=== PATIENT | female | born 1935 | race African-American/Black ===

== ENCOUNTER 2016-10-25 07:52 | Emergency (ER) | payer MEDICARE, MEDICAID ==
[~2016-10-25] VITALS: Ht 170.2 cm; Wt 58.0 kg
[~2016-10-25 07:52] MED LIST: CLOP75TA33 PO; KEPP500 PO; METO25TA6 PO
[2016-10-25] MEDS ORDERED: KETOROLAC 30MG/ML VIAL IV STA (08:25)
[2016-10-25] MEDS ORDERED: MORPHINE SULFATE 4 MG/ML CPJ (NOT FOR IM USE) IV STA (08:25)
[2016-10-25 08:51] LABS: BASOPHILS % 0.3 % (0.0-2.0); EOSINOPHILS % 0.9 % (0.0-5.0); HEMATOCRIT. 33.4 % (36.0-48.0); HEMOGLOBIN. 11.4 g/dL (12.0-16.0); LYMPHOCYTES % 23.2 % (20.0-50.0); MEAN CORPUSCULAR HEMOGLOBIN 28.4 pg (28.0-32.0); MEAN CORPUSCULAR VOLUME 83.4 fL (81.0-99.0); MEAN PLATELET VOLUME 7.7 fl (7.4-10.4); MONOCYTES % 10.6 % (2.0-8.0); PLATELET 170 x1000/uL (130-400); RED BLOOD CELL COUNT 4.01 mill/uL (4.2-5.4); RED CELL DISTRIBUTION WIDTH 14.1 % (11.6-14.6)
[2016-10-25 08:56] LABS: CHLORIDE 98 mEq/L (98-107)
[2016-10-25 08:59] LABS: PROTHROMBIN TIME 10.7 sec
[2016-10-25 09:04] LABS: CARBON DIOXIDE 23 mEq/L (21-32)
[2016-10-25 11:15] LABS: CLARITY URINE CLEAR (CLEAR); COLOR URINE YELLOW (YELLOW); GLUCOSE URINE NEGATIVE (NEGATIVE); KETONES URINE NEGATIVE (NEGATIVE); LEUKOCYTE ESTERASE URINE NEGATIVE (NEGATIVE); NITRITE URINE NEGATIVE (NEGATIVE); OCCULT BLOOD URINE TRACE (NEGATIVE); PH URINE 7.5 (4.5-8.0); PROTEIN URINE NEGATIVE (NEGATIVE); UROBILINOGEN URINE 0.2 E.U./dL (0.2-1.0)
[2016-10-25 11:26] VITALS: BP 183/87
== END 2016-10-25 12:14 | disposition home or self-care (01) ==
LOC: ER 07:58
DX: R10.32 Left lower quadrant pain (principal); I51.9 Heart disease, unspecified; Z79.01 Long term (current) use of anticoagulants
CPT/HCPCS: 36415; 74176; 80053; 81001; 83690; 85025; 85610; 96374; 96375; 99285; J1885; J2270

== ENCOUNTER 2016-12-06 11:36 | Emergency (ER) | payer MEDICARE, MEDICAID ==
[~2016-12-06] VITALS: Ht 170.2 cm; Wt 54.0 kg
[2016-12-06] MEDS ORDERED: TEMA15CA PO (12:01)
[2016-12-06] MEDS ORDERED: METHOCARBAMOL 500MG TABLET PO ONE (13:00)
[2016-12-06] MEDS ORDERED: KETOROLAC 60MG/2ML VIAL IM ONE (13:00)
[2016-12-06] MEDS ORDERED: ACETAMINOPHEN WITH CODEINE 300/30MG TABLET PO ONE (13:00)
[2016-12-06 18:07] VITALS: BP 154/89
== END 2016-12-06 18:11 | disposition home or self-care (01) ==
LOC: ER 11:36
DX: M54.16 Radiculopathy, lumbar region (principal); I25.10 Atherosclerotic heart disease of native coronary artery without angina pectoris; I10 Essential (primary) hypertension; R56.9 Unspecified convulsions; M25.551 Pain in right hip; M25.552 Pain in left hip; Z88.8 Allergy status to other drugs, medicaments and biological substances; Z90.710 Acquired absence of both cervix and uterus
CPT/HCPCS: 72100; 96372; 99284; J1885

== ENCOUNTER 2017-01-11 13:12 | Inpatient (IN) | payer MEDICARE, MEDICAID ==
[~2017-01-11] VITALS: Ht 157.5 cm; Wt 52.2 kg
[~2017-01-11 13:12] MED LIST changes: +TEMA15CA PO
[2017-01-11] MEDS ORDERED: MORPHINE SULFATE 4 MG/ML CPJ (NOT FOR IM USE) IV ONE (15:15)
[2017-01-11 15:43] LABS: BASOPHILS % 0.5 % (0.0-2.0); HEMATOCRIT. 30.9 % (36.0-48.0); HEMOGLOBIN. 10.5 g/dL (12.0-16.0); LYMPHOCYTES % 28.2 % (20.0-50.0); MEAN CORPUSCULAR HEMOGLOBIN 28.9 pg (28.0-32.0); MEAN CORPUSCULAR VOLUME 84.9 fL (81.0-99.0); MEAN PLATELET VOLUME 8.4 fl (7.4-10.4); MONOCYTES % 11.7 % (2.0-8.0); NEUTROPHILS % 59.6 % (40.0-76.0); PLATELET 151 x1000/uL (130-400); RED BLOOD CELL COUNT 3.65 mill/uL (4.2-5.4); RED CELL DISTRIBUTION WIDTH 15.2 % (11.6-14.6)
[2017-01-11 15:45] LABS: CHLORIDE 99 mEq/L (98-107)
[2017-01-11 15:48] LABS: INR 1.1
[2017-01-11 15:51] LABS: CARBON DIOXIDE 26 mEq/L (21-32)
[2017-01-11 15:55] LABS: TROPONIN I < 0.02 ng/mL (0.00-0.04)
[2017-01-11] MEDS ORDERED: ASPIRIN 325MG EC TABLET PO ONE (16:45)
[2017-01-11 17:42] LABS: CLARITY URINE CLEAR (CLEAR); COLOR URINE YELLOW (YELLOW); GLUCOSE URINE NEGATIVE (NEGATIVE); KETONES URINE TRACE (NEGATIVE); LEUKOCYTE ESTERASE URINE NEGATIVE (NEGATIVE); NITRITE URINE NEGATIVE (NEGATIVE); OCCULT BLOOD URINE NEGATIVE (NEGATIVE); PH URINE 8.5 (4.5-8.0); PROTEIN URINE NEGATIVE (NEGATIVE); SPECIFIC GRAVITY URINE 1.012 (1.005-1.030); UROBILINOGEN URINE 0.2 E.U./dL (0.2-1.0)
[2017-01-11] MEDS ORDERED: MORPHINE SULFATE 2 MG/ML CPJ (NOT FOR IM USE) IV NR (21:15)
[2017-01-11] MEDS ORDERED: ASPIRIN 325MG EC TABLET PO NR (21:15)
[2017-01-11 22:40] VITALS: BP 157/89
[2017-01-11] MEDS ORDERED: CLONIDINE 0.1MG TABLET PO PRN (23:15)
[2017-01-12 00:18] LABS: CREATINE KINASE 145 IU/L (26-192); CREATINE KINASE MB FRACTION 0.9 ng/mL (0.5-3.6); TROPONIN I < 0.02 ng/mL (0.00-0.04)
[2017-01-12 04:00] VITALS: BP 103/58
[2017-01-12] MEDS ORDERED: REGADENOSON 0.4 MG/5 ML IV ONE (06:30)
[2017-01-12] MEDS: HYDROCODONE/ACETAMINOPHEN 5/325MG TABLET PO PRN ×2 (07:05→17:46)
[2017-01-12 08:00] VITALS: BP 146/69
[2017-01-12] MEDS: NITROGLYCERIN OINT 1GM/INCH UDPKT TD SCH ×2 (08:30→21:52)
[2017-01-12] MEDS: CLOPIDOGREL 75MG TABLET PO SCH (08:30)
[2017-01-12] MEDS: LEVETIRACETAM 500MG TABLET PO SCH ×2 (08:31→17:48)
[2017-01-12] MEDS: ENOXAPARIN 30MG/0.3ML SYR SUBCUT SCH (08:31)
[2017-01-12] MEDS: METOPROLOL TARTRATE 25MG TABLET PO SCH (08:31)
[2017-01-12] MEDS ORDERED: METOPROLOL TARTRATE 25MG TABLET PO SCH (09:00)
[2017-01-12 10:34] LABS: BASOPHILS % 0.2 % (0.0-2.0); HEMATOCRIT. 31.3 % (36.0-48.0); HEMOGLOBIN. 10.6 g/dL (12.0-16.0); LYMPHOCYTES % 30.4 % (20.0-50.0); MEAN CORPUSCULAR HEMOGLOBIN 28.9 pg (28.0-32.0); MEAN CORPUSCULAR VOLUME 85.6 fL (81.0-99.0); MEAN PLATELET VOLUME 8.6 fl (7.4-10.4); MONOCYTES % 14.7 % (2.0-8.0); NEUTROPHILS % 54.7 % (40.0-76.0); PLATELET 151 x1000/uL (130-400); RED BLOOD CELL COUNT 3.66 mill/uL (4.2-5.4); RED CELL DISTRIBUTION WIDTH 15.7 % (11.6-14.6)
[2017-01-12 10:53] LABS: CARBON DIOXIDE 27 mEq/L (21-32); CHLORIDE 101 mEq/L (98-107); CREATINE KINASE 143 IU/L (26-192); CREATINE KINASE MB FRACTION 1.1 ng/mL (0.5-3.6); HDL CHOLESTEROL 89 mg/dL (40-59); LDL CHOLESTEROL 125 mg/dL (5-100); TROPONIN I < 0.02 ng/mL (0.00-0.04)
[2017-01-12 12:00] VITALS: BP 110/67
[2017-01-12 14:04] LABS: *AMPHETAMINES SCREEN URINE NEGATIVE (NEGATIVE); *BARBITURATES SCREEN URINE NEGATIVE (NEGATIVE); *BENZODIAZEPINES SCREEN URINE NEGATIVE (NEGATIVE); *COCAINE SCREEN URINE NEGATIVE (NEGATIVE); CANNABINOID URINE SCREEN NEGATIVE (NEGATIVE); METHADONE URINE SCREEN NEGATIVE (NEGATIVE); OPIATES URINE SCREEN NEGATIVE (NEGATIVE); PHENCYCLIDINE URINE SCREEN NEGATIVE (NEGATIVE)
[2017-01-12 16:00] VITALS: BP 96/54
[2017-01-12 20:00] VITALS: BP 146/78
[2017-01-12] MEDS: TEMAZEPAM 15MG CAPSULE PO PRN (22:00)
[2017-01-13] VITALS: BP 122/71
[2017-01-13 04:00] VITALS: BP 117/70
[2017-01-13 07:33] LABS: BASOPHILS % 0.2 % (0.0-2.0); HEMATOCRIT. 27.3 % (36.0-48.0); HEMOGLOBIN. 9.3 g/dL (12.0-16.0); MEAN CORPUSCULAR HEMOGLOBIN 28.8 pg (28.0-32.0); MEAN CORPUSCULAR VOLUME 84.7 fL (81.0-99.0); MEAN PLATELET VOLUME 8.8 fl (7.4-10.4); MONOCYTES % 13.5 % (2.0-8.0); NEUTROPHILS % 48.3 % (40.0-76.0); PLATELET 134 x1000/uL (130-400); RED BLOOD CELL COUNT 3.23 mill/uL (4.2-5.4); RED CELL DISTRIBUTION WIDTH 15.6 % (11.6-14.6)
[2017-01-13 07:45] VITALS: BP 125/72
[2017-01-13 08:20] LABS: CARBON DIOXIDE 26 mEq/L (21-32); CHLORIDE 99 mEq/L (98-107)
[2017-01-13 08:31] LABS: TROPONIN I < 0.02 ng/mL (0.00-0.04)
[2017-01-13] MEDS: CLOPIDOGREL 75MG TABLET PO SCH (09:15)
[2017-01-13] MEDS: LEVETIRACETAM 500MG TABLET PO SCH ×2 (09:15→16:25)
[2017-01-13] MEDS: NITROGLYCERIN OINT 1GM/INCH UDPKT TD SCH ×2 (09:16→21:10)
[2017-01-13] MEDS: METOPROLOL TARTRATE 25MG TABLET PO SCH (09:16)
[2017-01-13] MEDS: ENOXAPARIN 30MG/0.3ML SYR SUBCUT SCH (09:16)
[2017-01-13 12:00] VITALS: BP 104/61
[2017-01-13] MEDS: HYDROCODONE/ACETAMINOPHEN 5/325MG TABLET PO PRN (15:04)
[2017-01-13 16:00] VITALS: BP 116/76
[2017-01-13 20:00] VITALS: BP 133/77
[2017-01-13] MEDS: ATORVASTATIN CALCIUM 10MG TABLET PO SCH (21:10)
[2017-01-13] MEDS: TEMAZEPAM 15MG CAPSULE PO PRN (21:10)
[2017-01-14] VITALS: BP 120/63
[2017-01-14 04:00] VITALS: BP 102/62
[2017-01-14 06:46] LABS: BASOPHILS % 0.2 % (0.0-2.0); EOSINOPHILS % 0.1 % (0.0-5.0); HEMATOCRIT. 27.2 % (36.0-48.0); HEMOGLOBIN. 9.1 g/dL (12.0-16.0); LYMPHOCYTES % 41.3 % (20.0-50.0); MEAN CORPUSCULAR HEMOGLOBIN 28.3 pg (28.0-32.0); MEAN CORPUSCULAR VOLUME 84.9 fL (81.0-99.0); MEAN PLATELET VOLUME 8.8 fl (7.4-10.4); MONOCYTES % 12.3 % (2.0-8.0); NEUTROPHILS % 46.1 % (40.0-76.0); PLATELET 131 x1000/uL (130-400); RED BLOOD CELL COUNT 3.21 mill/uL (4.2-5.4); RED CELL DISTRIBUTION WIDTH 15.2 % (11.6-14.6)
[2017-01-14 08:00] VITALS: BP 122/70
[2017-01-14] MEDS: CLOPIDOGREL 75MG TABLET PO SCH (09:27)
[2017-01-14] MEDS: METOPROLOL TARTRATE 25MG TABLET PO SCH (09:27)
[2017-01-14] MEDS: LEVETIRACETAM 500MG TABLET PO SCH ×2 (09:27→17:00)
[2017-01-14] MEDS: ENOXAPARIN 30MG/0.3ML SYR SUBCUT SCH (09:28)
[2017-01-14] MEDS: NITROGLYCERIN OINT 1GM/INCH UDPKT TD SCH ×2 (09:28→21:15)
[2017-01-14] MEDS ORDERED: REGADENOSON 0.4 MG/5 ML IV ONE (10:56)
[2017-01-14 16:00] VITALS: BP 123/69
[2017-01-14 20:00] VITALS: BP 131/70
[2017-01-14] MEDS: ATORVASTATIN CALCIUM 10MG TABLET PO SCH (21:15)
[2017-01-15] VITALS: BP 104/65
[2017-01-15 04:00] VITALS: BP 113/68
[2017-01-15] MEDS: HYDROCODONE/ACETAMINOPHEN 5/325MG TABLET PO PRN ×2 (06:10→10:26)
[2017-01-15 08:00] VITALS: BP 108/72
[2017-01-15] MEDS: CLOPIDOGREL 75MG TABLET PO SCH (08:51)
[2017-01-15] MEDS: LEVETIRACETAM 500MG TABLET PO SCH ×2 (08:51→17:44)
[2017-01-15] MEDS: ENOXAPARIN 30MG/0.3ML SYR SUBCUT SCH (08:52)
[2017-01-15] MEDS: METOPROLOL TARTRATE 25MG TABLET PO SCH ×2 (08:57→12:22)
[2017-01-15] MEDS: NITROGLYCERIN OINT 1GM/INCH UDPKT TD SCH (08:58)
[2017-01-15 12:00] VITALS: BP 134/81
[2017-01-15 16:00] VITALS: BP 115/67
[2017-01-15 17:46] VITALS: BP 115/67
== END 2017-01-15 18:25 | disposition home health service (06) | DRG 74 ==
LOC: ER 14:14 → 7WST 16:47 → EDBEDREQ 16:49 → ENRESERV 21:01
PROVIDERS: ADMIT Internal Medicine; ATTEND Internal Medicine
DX: G90.8 Other disorders of autonomic nervous system (principal); D64.9 Anemia, unspecified; I11.9 Hypertensive heart disease without heart failure; E78.5 Hyperlipidemia, unspecified; I25.10 Atherosclerotic heart disease of native coronary artery without angina pectoris; H91.90 Unspecified hearing loss, unspecified ear; Z60.2 Problems related to living alone; R62.7 Adult failure to thrive; M25.551 Pain in right hip; Z79.899 Other long term (current) drug therapy; Z86.73 Personal history of transient ischemic attack (TIA), and cerebral infarction without residual deficits; Z90.710 Acquired absence of both cervix and uterus; Z90.721 Acquired absence of ovaries, unilateral; Z88.6 Allergy status to analgesic agent; Z88.8 Allergy status to other drugs, medicaments and biological substances
CPT/HCPCS: 36415; 70551; 71010; 73502; 76700; 78452; 80048; 80053; 80061; 80305; 81003; 82550; 82553; 83735; 83880; 84484; 85025; 85610; 85651; 86301; 93005; 93017; 93306; 93970; 96374; 97162; 99285; A9500; J1650; J2270; J2785